=== PATIENT | female | born 1980 | race Caucasian/White ===

== ENCOUNTER 2016-04-20 00:35 | Emergency (ER) | payer OTHER ==
[2016-04-20 00:46] VITALS: BP 122/83; BMI 27.4
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
[2016-04-20] MEDS ORDERED: ACTIVATED CHARCOAL 260 MG CAPSULE PO ONE (01:05)
[2016-04-20] MEDS ORDERED: FAMOTIDINE 20 MG/50 ML IVPB 50 ML IVPB ONE ×2 (01:09→01:22)
[2016-04-20] MEDS ORDERED: CHARCOAL/WATER SOLUTION 25 GM/120 ML TUBE ONE (01:10)
[2016-04-20] MEDS ORDERED: ONDANSETRON 4 MG/2 ML VIAL ONE (01:40)
[2016-04-20] MEDS ORDERED: ONDANSETRON 4 MG/2 ML VIAL IVPUSH ONE (01:41)
[2016-04-20 02:11] LABS: BASOPHIL 1.1 % (0-2.0); EOSINOPHIL 1.8 % (0-4.5); MCH 31.6 pg (25.7-33.7); MCHC 33.7 g/dl (32.0-36.0); MEAN CELL VOLUME 93.6 fl (80-96); MEAN PLT VOLUME 10.1 fl (7.5-11.1); NEUTROPHILS 72.9 % (42.8-82.8); PLATELET COUNT 229 K/MM3 (134-434); RDW 13.3 % (11.6-15.6); WHITE BLOOD COUNT 8.3 K/mm3 (4.0-10.0)
[2016-04-20 02:35] LABS: ALK PHOS 71 U/L (45-117); ANION GAP 10 (8-16); BILIRUBIN,TOTAL 0.4 mg/dL (0.2-1.0); CALCIUM 8.9 mg/dL (8.5-10.1); CO2 26 mmol/L (21-32); CREATININE 0.6 mg/dL (0.55-1.02); GLUCOSE,RANDOM 106 mg/dL (74-106); SGPT/ALT 15 U/L (12-78); TOT PROT 7.5 g/dl (6.4-8.2)
[2016-04-20 02:36] LABS: SGOT/AST 15 U/L (15-37)
[2016-04-20 03:49] VITALS: PULSE 76
[2016-04-20 14:18] LABS: SALICYLATE < 4.0 mg/dl (0.0-30.0)
== END 2016-04-20 03:48 | disposition home or self-care (01) ==
LOC: JER 00:35
PROC: 3E033GC Introduction of Other Therapeutic Substance into Peripheral Vein, Percutaneous Approach (ICD-10-PCS; principal; 2016-04-20)
DX: T39.311A Poisoning by propionic acid derivatives, accidental (unintentional), initial encounter (principal); Y92.038 Other place in apartment as the place of occurrence of the external cause
CPT/HCPCS: 36415; 80053; 80307; 84703; 85025; 96365; 96375; 99284-25

== ENCOUNTER 2016-09-09 02:20 | Emergency (ER) | payer OTHER ==
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
[2016-09-09] MEDS ORDERED: IBUPROFEN 600 MG TABLET (FP) PO ONE ×2 (04:20→04:44)
[2016-09-09 04:42] VITALS: TEMP 98.4; BMI 26.4
--- NOTE | 2016-09-09 08:06 | PDOC ---
*Physical Exam - Vital Signs Last Vital Signs Temp Pulse Resp BP Pulse Ox 98.4 F 96 H 14 130/70 100 09/09/16 04:40 09/09/16 04:40 09/09/16 04:40 09/09/16 04:40 09/09/16 04:40 ED Treatment Course - ADDITIONAL ORDERS Additional order review: Laboratory Results 09/09/16 04:22 Urine HCG, Qual Negative - Medications Given in the ED: ED Medications Discontinued Medications Generic Name Dose Route Start Last Admin Trade Name Greyson PRN Reason Stop Dose Admin Ibuprofen 600 mg 09/09/16 04:20 09/09/16 04:48 Motrin - PO 09/09/16 04:21 600 mg ONCE ONE Administration Oxycodone/Acetaminophen 2 combo 09/09/16 04:20 09/09/16 04:49 Percocet 5/325 - PO 09/09/16 04:21 2 combo ONCE ONE Administration Medical Decision Making - Medical Decision Making 09/09/16 08:03 Sign-out received from outgoing Emergency Physician Dr. Paz Pt interviewed and examined Ancillary studies reviewed Case discussed in detail with oncoming Emergency Physician including history, physical exam and ancillary studies. Xray reviewed. No fractures appreciated. Supportive care Follow up with PMD I discussed the physical exam findings, ancillary test results and final diagnoses with the patient. I answered all of the patient's questions. The patient was satisfied with the care received and felt comfortable with the discharge plan and treatment plan. The patient will call their primary care physician within 24 hours to arrange follow-up and will return to the Emergency Department with any new, persistant or worsening symptoms. *DC/Admit/Observation/Transfer Diagnosis at time of Disposition: Rib pain - Discharge Dispostion Disposition: HOME Condition at time of disposition: Stable Admit: No - Prescriptions Prescriptions: Naproxen [Naprosyn -] 500 mg PO BID PRN #20 tablet PRN Reason: Pain - Patient Instructions Printed Discharge Instructions: DI for Rib Contusion Additional Instructions: Your xrays are negative for fracture. Please take 500 mg naproxen every 12 hours as needed for pain. It will likely take several days before your symptoms improve. Follow up with your doctor. - Post Discharge Activity Work/School Note: Back to Work
[2016-09-09 08:22] VITALS: BP 107/72; PULSE 68
== END 2016-09-09 08:24 | disposition home or self-care (01) ==
LOC: JER 02:20
DX: S29.8XXA Other specified injuries of thorax, initial encounter (principal); Y04.2XXA Assault by strike against or bumped into by another person, initial encounter; Y93.89 Activity, other specified; Y92.89 Other specified places as the place of occurrence of the external cause; Y07.9 Unspecified perpetrator of maltreatment and neglect
CPT/HCPCS: 71101-TC; 84703; 99282-25